=== PATIENT | male | born 1985 | race Hispanic/Latino ===

== ENCOUNTER 2019-12-21 03:01 | Emergency (ER) | payer BC, OTHER ==
[~2019-12-21] VITALS: Ht 165.1 cm; Wt 106.6 kg
[2019-12-21] MEDS ORDERED: PENICILLIN G BENZATHINE LA 1.2 MU TBX IM STA (03:13)
[2019-12-21] MEDS ORDERED: DEXAMETHASONE SOD PHOS 10 MG/1 ML VIAL IM ONE (03:15)
[2019-12-21 03:39] VITALS: BP 140/83
== END 2019-12-21 03:45 | disposition home or self-care (01) ==
LOC: ER 03:01
DX: J03.00 Acute streptococcal tonsillitis, unspecified (principal); E11.9 Type 2 diabetes mellitus without complications; G47.30 Sleep apnea, unspecified; F17.210 Nicotine dependence, cigarettes, uncomplicated
CPT/HCPCS: 99282; J0561; J1100